=== PATIENT | female | born 1950 | race Caucasian/White ===

== ENCOUNTER 2016-12-01 07:53 | Day surgery (SDC) | payer MEDICARE, OTHER ==
[2016-11-26 13:34] LABS: BASOPHILS 0.5 %; BASOPHILS ABSOLUTE 0.04 10/3/uL (0.0-0.16); EOSINOPHILS ABSOLUTE 0.15 10/3/uL (0.0-0.53); HEMATOCRIT 36.9 % (36.0-48.0); HEMOGLOBIN 11.8 g/dL (12.0-16.0); IMMATURE GRANULOCYTES 0.1 %; IMMATURE GRANULOCYTES ABSOLUTE 0.01 10/3/uL (0.0-0.11); LYMPHOCYTES 31.5 %; LYMPHOCYTES ABSOLUTE 2.34 10/3/uL (0.67-4.30); MANUAL DIFF NO %; MEAN CORPUSCULAR HEMOGLOB 26.5 pg (26.0-34.0); MEAN CORPUSCULAR VOLUME 82.9 fL (80-100); MONOCYTES 7.3 %; MONOCYTES ABSOLUTE 0.54 10/3/uL (0.21-1.20); NEUTROPHILS 58.6 %; NEUTROPHILS ABSOLUTE 4.36 10/3/uL (2.02-8.40); PLATELET COUNT 241 10/3/uL (150-400); RBC DISTRIBUTION WIDTH 19.2 % (12.0-16.0); RED CELL COUNT 4.45 10/6/uL (4.0-5.6); WHITE BLOOD CELLS 7.4 10/3/uL (4.5-10.5)
[2016-11-26 13:49] LABS: CALCIUM, SERUM 9.3 MG/DL (8.5-10.4); CHLORIDE, SERUM 101 MMOL/L (96-112); CO2 (CARBON DIOXIDE) 32 MMOL/L (24-34); CREATININE 0.49 MG/DL (0.55-1.02); GFR AFRICAN AMERICAN 117 ML/MIN (>=60); GFR NON AFRICAN AMERICAN 101 ML/MIN (>=60); GLUCOSE, SERUM 86 MG/DL (60-99); POTASSIUM, SERUM 3.2 MMOL/L (3.5-5.3); SODIUM, SERUM 142 MMOL/L (135-148)
[2016-11-26 13:53] LABS: BUN (BLOOD UREA NITROGEN) 14 MG/DL (6-23)
[2016-11-26 14:04] LABS: ANISOCYTOSIS 1+ (5-10/OIF) (0-5/OIF); PLATELET ESTIMATE ADQ (ADEQUATE)
--- NOTE | ~2016-12-01 | OP ---
Record Of Operation [facility] [address] [place]. [address] NAME: YEISON JAMES : 48 STATUS : REG [facility] [place] PAT#: [id number] AGE: 66 ADM/REG DATE : 12/01/16 MR#: [id number] REPORT SERV DATE: 12/01/16 DICTATED BY: REINIER OROZCO DATE: 12/01/16 REPORT STATUS : Draft TRANSCRIBED BY: MODL DATE: 12/01/16 DATE OF PROCEDURE: 12/01/2016 PREOPERATIVE DIAGNOSIS: History of right breast cancer, status post sentinel node biopsy with positive sentinel nodes. POSTOPERATIVE DIAGNOSIS: History of right breast cancer, status post sentinel node biopsy with positive sentinel nodes. OPERATION PERFORMED: 1. Left internal jugular Port-A-Cath placement under ultrasound and fluoroscopic guidance. 2. Right axillary node dissection. SURGEON: Reinier Orozco M.D. ASSISTANTS: Vince Barreto M.D. ESTIMATED BLOOD LOSS: Less than 10 mL. IV FLUIDS: Adequate. INDICATION FOR PROCEDURE: Ms. James is a 66-year-old white female who is 2 weeks out from a right lumpectomy and sentinel node biopsy. She had 2 positive sentinel nodes at the time of surgery. She has presented at breast conference and it was felt that axillary dissection has been indicated. In addition, she has been seen by Medical Oncology who is offering her chemotherapy. We are therefore placing a Port-A-Cath today. DESCRIPTION OF OPERATION: After appropriate sedation, the patient was prepped and draped in a proper sterile fashion. We began with Port-A-Cath. Ultrasound probe was placed over the left neck. She had a patent and pliable left internal jugular vein. The left internal jugular vein was cannulated using a 14-gauge needle under ultrasound guidance. A guidewire was fed under fluoroscopic guidance just above the right heart. A transverse incision was made over the right chest wall. Subcutaneous tissues were incised down to pectoralis fascia and the pocket was bluntly dissected. Introducer sheath was then placed over the guidewire into the left internal jugular vein. The catheter was then fed through the introducer sheath with the tip being just above the right heart under fluoroscopic guidance. The catheter was then tunneled subcutaneously to the port pocket and secured to the port. Port secured to the chest wall using 3-0 Vicryl suture. The port was flushed and aspirated, it flushed and aspirated easily. The skin was closed using interrupted 3-0 Vicryl sutures. Dermabond dressings were then placed. We then turned our attention towards the right axilla. We opened up the previous incision. We incised the scar tissue entering the axillary fat pad. We dissected up to the axillary vein and dissected the axillary contents off the axillary vein using the Harmonic scalpel. We visualized as we worked our way posteriorly to the thoracodorsal neurovascular bundle. We then went underneath the pectoralis minor taking the axillary contents off the axillary vein inferiorly. We then took the remainder of the axillary contents off the chest wall. This was all done using the Record Of Operation [address] [id number] NAME: YEISON JAMES : 48 STATUS : REG [facility] [place] PAT#: [id number] AGE: 66 ADM/REG DATE : 12/01/16 MR#: [id number] REPORT SERV DATE: 12/01/16 DICTATED BY: REINIER OROZCO DATE: 12/01/16 REPORT STATUS : Draft TRANSCRIBED BY: MODL DATE: 12/01/16 Harmonic scalpel. We then passed the specimen off as left axillary contents. We then palpated the axilla. There was no other visible eliane tissue. There were no suspicious nodes in the level 3 area. We then placed a drain through the skin laterally. It was placed into the right axilla. Deep tissues were approximated using interrupted 3-0 Vicryl sutures. The skin was closed using interrupted 3-0 Vicryl sutures. Steri-Strips and dressings were then placed. The patient was taken to the recovery room in satisfactory condition. ESTIVEN/NALDO Reinier Orozco M.D. / [id number] CC: Kesha Alfred IV
[~2016-12-01 07:53] MED LIST: AMARYL2 PO; CALTRA600D PO; DETROLLA4 PO; FORTAMET500 MG PO; HYZAAR 100/25 T1 TAB PO; KLOR-CON 1010 MEQ PO; LIPITOR80 MG PO; MAGOX4 PO; SYN.15 PO; VITAMIN D31000 UNIT PO
== END 2016-12-01 22:12 | disposition home or self-care (01) ==
LOC: SDC 07:53
PROVIDERS: Specialist
PROC: B514YZA Fluoroscopy of Left Jugular Veins using Other Contrast, Guidance (ICD-10-PCS; 2016-12-01)
PROC: B544ZZA Ultrasonography of Left Jugular Veins, Guidance (ICD-10-PCS; 2016-12-01)
PROC: 07B50ZX Excision of Right Axillary Lymphatic, Open Approach, Diagnostic (ICD-10-PCS; 2016-12-01)
PROC: 0JH60XZ Insertion of Tunneled Vascular Access Device into Chest Subcutaneous Tissue and Fascia, Open Approach (ICD-10-PCS; principal; 2016-12-01 10:00)
PROC: 05HN33Z Insertion of Infusion Device into Left Internal Jugular Vein, Percutaneous Approach (ICD-10-PCS; 2016-12-01 10:00)
DX: C77.3 Secondary and unspecified malignant neoplasm of axilla and upper limb lymph nodes (principal); C50.411 Malignant neoplasm of upper-outer quadrant of right female breast; E11.9 Type 2 diabetes mellitus without complications; I10 Essential (primary) hypertension; E78.00 Pure hypercholesterolemia, unspecified; D64.9 Anemia, unspecified; E03.9 Hypothyroidism, unspecified; Z90.710 Acquired absence of both cervix and uterus; Z90.89 Acquired absence of other organs; Z90.49 Acquired absence of other specified parts of digestive tract; Z98.890 Other specified postprocedural states; Z82.49 Family history of ischemic heart disease and other diseases of the circulatory system; Z82.3 Family history of stroke; Z88.8 Allergy status to other drugs, medicaments and biological substances; Z79.899 Other long term (current) drug therapy; Z79.52 Long term (current) use of systemic steroids
CPT/HCPCS: 71010; 76000; 80048; 82962; 85025; 88307; A9270-GY; C1788; J0360; J0690; J2250; J2270; J2405; J2710; J3010; Q9967; Q9968